=== PATIENT | female | born 1965 | race Caucasian/White ===

== ENCOUNTER → 2018-10-05 | Outpatient (CLI) | payer BC ==
--- NOTE | 2018-10-05 12:04 | Diagnostic Imaging Report ---
EXAM: BONE MINERAL DENSITY HISTORY: Bone mineralization evaluation COMPARISON: None DISCUSSION: Evaluation of the left hip and lumbar spine was performed utilizing DEXA Hologic bone densitometer. The study is technically adequate. Left hip femoral neck bone mineral density: 0.62 g/cm2, T-score is -2.1, Z-score is -1.0. Left hip total bone mineral density: 0.73 g/cm2, T-score is -1.7, Z-score is -1.1. Bone mineralization decreased by 5.6%. Lumbar spine total bone mineral density: 1.06 gm/cm2, T-score is 0.1, Z-score is 1.1. Bone mineralization decreased by 0.2%. 10 year fracture risk major osteoporotic fracture 8.1% and hip fracture 1.6%. Impression: Bone mineralization by WHO Classification is low bone mass/osteopenia, the fracture risk is increased. Signed by: Dr. Hung Anguiano M.D. on 10/05/2018 12:00 PM
== END ==
LOC: MAMMO 10:11
PROVIDERS: ATTEND Internal Medicine
DX: Z85.3 Personal history of malignant neoplasm of breast (principal); M85.80 Other specified disorders of bone density and structure, unspecified site
CPT/HCPCS: 77066; 77080